=== PATIENT | female | born 1985 | race Caucasian/White ===

== ENCOUNTER 2021-11-07 13:31 | Emergency (ER) | payer OTHER, SELFPAY ==
[2021-11-07 13:38] VITALS: BP 113/75; PULSE 90; RESP 20; TEMP 36.5; O2SAT 99; BMI 27.0
--- NOTE | 2021-11-07 13:54 | ED_ITS ---
HPI - General Adult General Chief complaint: Back Injury/Pain Stated complaint: Fall From Horse Time Seen by Provider: 11/07/21 13:33 Source: patient Mode of arrival: ambulatory Limitations: no limitations History of Present Illness HPI narrative: Patient is a generally healthy 36-year-old female coming in today after falling off of her horse. Patient states that the horse turned quickly and she flew off of him in the opposite direction and hitting her right flank against the fence that was there but then landing on her feet. She denies hitting her head or losing consciousness. She felt a little dizzy for about 5-10 minutes after this happened she laid down on the ground and then recovered. This occurred approximately 4 hours ago. She came in today just to make sure she had no internal damage. She states that she has pain in the right flank area. Denies abdominal discomfort. Denies any blood in her urine. Denies headache, blurry vision or confusion. Denies other injury. Patient is on fluoxetine and takes no other medications. She did have ibuprofen shortly after the accident happened this morning. Related Data Home Medications Medication Instructions Recorded Confirmed fluoxetine 20 mg capsule 20 mg PO DAILY 11/07/21 11/07/21 Allergies Allergy/AdvReac Type Severity Reaction Status Date / Time Sulfa (Sulfonamide Allergy Verified 11/07/21 13:43 Antibiotics) Review of Systems Status of ROS: Reports: 10 or more systems reviewed and unremarkable except as noted in History and below [facility] Social History Smoking Status: Never smoker Do you use any of these nicotine containing products: None Second hand tobacco smoke exposure: No How often do you have a drink containing alcohol: monthly or less How often do you have six or more drinks on one occasion: Never AUDIT-C Alcohol total score: 1 Non-prescribed substance use: denies use Exam Narrative: Exam Narrative: Well-nourished well-developed patient in no acute distress. Alert and oriented. Answers questions appropriately. Mood and affect are appropriate. Thoughts are goal oriented and rational. No tangential or magical thinking noted. Patient speaks in full sentences without needing to catch their breath. HEENT: Normocephalic atraumatic. Pupils are equally round reactive to light. Extraocular muscles are intact. Conjunctivae are moist without any icterus noted. Moist mucous membranes. Posterior pharynx is normal. Neck is soft without any lymphadenopathy or thyromegaly. No masses are appreciated. Cardiovascular: Heart is regular rate and rhythm S1 and S2 are present without any murmurs. Lungs: Clear to auscultation bilaterally no wheezes rhonchi or rales are appreciated. Patient takes deep breaths without any discomfort. Abdomen: Soft and nontender nondistended with normal bowel sounds. No guarding or rebound. No masses or organomegaly appreciated. Patient does not have CVA tenderness on the right or the left. Patient does have a moderate-sized bruise on the lower right flank with superficial abrasion of the skin But the area is not significantly tender. She has no tenderness to palpation of the anterior lateral or posterior chest wall. Extremities: Bilateral lower extremities are without edema. Normal DP and PT pulses. Skin: Well perfused without any obvious rashes. Ecchymosis and superficial abrasion noted above. Back: No tenderness to palpation of the cervical, thoracic or lumbar spine. She has full range of motion at the neck with flexion, extension, side way bending and rotation without pain or difficulty. Const: Vital Signs, click to edit/add: Vital Signs - 24 hr 11/07/21 13:38 Temperature 97.7 F Pulse Rate [Right Pulse Oximeter] 90 Respiratory Rate 20 Blood Pressure [Le ft Upper Arm] 113/75 Pulse Oximetry 99 Course Course Hospital Course: Given her exam is very benign, with shared decision making, we decided not to do any further imaging. However given the location of her bruising we did go ahead and proceed with a urine analysis to make sure there is no blood present signaling any kidney injury. UA was entirely normal. Vital Signs Vital signs: Initial Vital Signs Temperature 97.7 F 11/07/21 13:38 Temperature Source Temporal Artery Scan 11/07/21 13:38 Pulse Rate 90 11/07/21 13:38 Respiratory Rate 20 11/07/21 13:38 Blood Pressure 113/75 11/07/21 13:38 Blood Pressure Mean 87 11/07/21 13:38 Blood Pressure Position Sitting 11/07/21 13:38 Pulse Oximetry 99 11/07/21 13:38 Oxygen Delivery Method 11/07/21 13:38 Vital Signs Temperature 97.7 F 11/07/21 13:38 Pulse Rate 90 11/07/21 13:38 Respiratory Rate 20 11/07/21 13:38 Blood Pressure 113/75 11/07/21 13:38 Pulse Oximetry 99 11/07/21 13:38 Temperature 97.7 F 11/07/21 13:38 Pulse Rate 90 11/07/21 13:38 Respiratory Rate 20 11/07/21 13:38 Blood Pressure 113/75 11/07/21 13:38 Pulse Oximetry 99 11/07/21 13:38 Medical Decision Making MDM Narrative Medical decision making narrative: 36-year-old female status post falling off a horse with trauma to the right flank. I do believe that her injuries are superficial. Given her normal exam we opted not to do any further imaging at this time. We discussed reasons to return to the ER. Patient was agreeable with everything we discussed and had no other questions. Lab Data Lab results reviewed: Yes I reviewed the patient's lab results Labs: Lab Results 11/07/21 Range/Units 14:00 Urine Color Yellow (Yellow) Urine Appearance Clear (Clear) Urine pH 6.0 (5.0-8.5) Ur Specific [place] >= 1.030 (1.000-1.030) Urine Protein Negative (Negative) Urine Glucose (UA) Negative (Negative) Urine Ketones Negative (Negative) Urine Blood Negative (Negative) Urine Nitrite Negative (Negative) Urine Bilirubin Negative (Negative) Urine Urobilinogen 0.2 (0.2-1.0) Ur Leukocyte Esterase Negative (Negative) Urine RBC 0-2 (0-2) Urine WBC 2-5 (0-5) Ur Squamous Epith Cells Moderate A (None-Few) Amorphous Sediment Few A (None) Urine Bacteria Moderate A (None) Discharge Plan Discharge Clinical Impression: Contusion Patient Disposition: Home, Self-Care Condition: Stable Additional Instructions: Okay to take ibuprofen or Tylenol as needed. Okay to ice the sore area. Return to the ER if you develop worsening pain in the abdominal area or back, or developed blood in your urine. Expect increasing soreness in the morning- this is not unusual. Prescriptions: No Action fluoxetine 20 mg capsule 20 mg PO DAILY 0RF Stand Alone Forms: [facility] Info Instructions
[2021-11-07 14:17] LABS: Appearance Urine Clear (Clear); Bilirubin Urine Negative (Negative); Blood Urine Negative (Negative); Color Urine Yellow (Yellow); Glucose Urine Negative (Negative); Ketones Urine Negative (Negative); Leukocyte Esterase Urine Negative (Negative); Nitrite Urine Negative (Negative); Protein Urine Negative (Negative); Specific Gravity Urine >= 1.030 (1.000-1.030); Urobilinogen Urine 0.2 (0.2-1.0)
[2021-11-07 14:29] LABS: Bacteria Urine Moderate; RBC Urine 0-2 (0-2); Squamous Epithelial Cell Urine Moderate (None-Few)
[2021-11-07 14:30] LABS: Amorphous Sediment Urine Few
== END 2021-11-07 15:01 | disposition home or self-care (01) ==
LOC: ED 14:59
PROVIDERS: Emergency Provider Family Medicine
DX: S30.1XXA Contusion of abdominal wall, initial encounter (principal); V80.010A Animal-rider injured by fall from or being thrown from horse in noncollision accident, initial encounter
CPT/HCPCS: 81001; 87086; 99282; 99283; 99284

== ENCOUNTER 2024-01-17 11:15 | Outpatient (RCR) | payer OTHER, SELFPAY | END 2024-01-17 12:08 | disposition home or self-care (01) | PROVIDERS: Visit Provider Family Medicine | DX: R07.81 Pleurodynia (principal); Z74.09 Other reduced mobility; V80.010A Animal-rider injured by fall from or being thrown from horse in noncollision accident, initial encounter; Y93.52 Activity, horseback riding; Z51.89 Encounter for other specified aftercare | CPT/HCPCS: 97110; 97112; 97161 ==